=== PATIENT | male | born 1970 | race Caucasian/White ===

== ENCOUNTER 2018-07-25 11:23 | Emergency (ER) | payer MEDICAID, SELFPAY ==
[~2018-07-25] VITALS: Ht 162.6 cm; Wt 62.5 kg
[2018-07-25 11:32] VITALS: BP 125/74
== END 2018-07-25 12:21 | disposition home or self-care (01) ==
LOC: ED 12:20
DX: J98.01 Acute bronchospasm (principal); Z87.891 Personal history of nicotine dependence
CPT/HCPCS: 71046; 99283